=== PATIENT | female | born 1965 | race Caucasian/White ===

== ENCOUNTER 2018-11-02 09:28 | Emergency (ER) | payer BC ==
[2018-11-02] MEDS ORDERED: LORazepam 2 MG/ML SDV IVPUSH ONE (09:42)
--- NOTE | 2018-11-02 09:54 | EDM.PDOC ---
ED HPI GENERAL MEDICAL PROBLEM - General Chief Complaint: Cardiovascular Problem Stated Complaint: AMBULANCE Time Seen by Provider: 11/02/18 09:32 - History of Present Illness INITIAL COMMENTS - FREE TEXT/NARRATIVE: HISTORY AND PHYSICAL: History of present illness: Patient's 53-year-old white female with history of Mnire's disease did have a sac decompressive surgery which did improve her symptoms dramatically who presents today with a concern of profound dizziness different in nature along with headache chest pain associated nausea vomiting and one episode of profound diaphoresis yesterday. She presents via EMS and did receive Toradol and Zofran en route. Patient also has history of optic neuritis Review of systems: As per history of present illness and below otherwise all systems reviewed and negative. Past medical history: As per history of present illness and as reviewed below otherwise noncontributory. Surgical history: As per history of present illness and as reviewed below otherwise noncontributory. Social history: No reported history of drug or alcohol abuse. Family history: As per history of present illness and as reviewed below otherwise noncontributory. Physical exam: HEENT: Atraumatic, normocephalic, pupils reactive, negative for conjunctival pallor or scleral icterus, mucous membranes moist, throat clear, neck supple, nontender, trachea midline. Lungs: Clear to auscultation, breath sounds equal bilaterally, chest nontender. Heart: S1S2, regular, negative for clicks, rubs, or JVD. Abdomen: Soft, nondistended, nontender. Negative for masses or hepatosplenomegaly. Negative for costovertebral tenderness. Pelvis: Stable nontender. Genitourinary: Deferred. Rectal: Deferred. Extremities: Atraumatic, negative for cords or calf pain. Neurovascular unremarkable. Neuro: Awake, alert, oriented. Cranial nerves II through XII limited exam . Motor and sensory unremarkable throughout. Exam limited nonfocal. Diagnostics: CBC CMP troponin PT/INR chest x-ray EKG CT brain ESR CRP Therapeutics: IV O2 monitor Ativan 1 mg IV Impression: #1 dizziness history of Mnire's disease #2 history of optic neuritis #3 cephalgia #4 atypical chest pain Definitive disposition and diagnosis as appropriate pending reevaluation and review of above. 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 , 3 miscarriage Neurological History: Reports: Vertigo Other Neuro History: meneires, vestibular neuritis, optic neuritis Endocrine/Metabolic History: Reports: Diabetes, Type II Immunologic History: Reports: Other (See Below) Other Immunologic History: Hx of steroid infusions in high doses for neuritis hx - Past Surgical History HEENT Surgical History: Reports: Tonsillectomy Other HEENT Surgeries/Procedures: endolymphatic sac decompression of R ear GI Surgical History: Reports: Cholecystectomy Social & Family History - Family History Family Medical History: Noncontributory - Tobacco Use Smoking Status *Q: Never Smoker - Caffeine Use Caffeine Use: Reports: Coffee - Recreational Drug Use Recreational Drug Use: No ED ROS GENERAL - Review of Systems Review Of Systems: ROS reveals no pertinent complaints other than HPI. ED EXAM, GENERAL - Physical Exam Exam: See Below (See dictation) Course - Vital Signs Text/Narrative:: Patient's emergency murmur courses been unremarkable her workup is nondiagnostic she feels better I discussed with her remission for observation I discussed with her transfer to [facility] where her neurologist and other physicians are located patient declines both she requests discharge home and outpatient follow-up. She'll be discharged with diagnosis of #1 dizziness #2 atypical chest pain, #3 history of Mnire's disease, #4 history of optic neuritis will be given Zofran and Ativan as directed and follow-up VERONICA and return as needed as discussed. Last Recorded V/S: Last Vital Signs Temp 35.8 C 11/02/18 09:30 Pulse 91 11/02/18 11:04 Resp 20 11/02/18 11:04 BP 114/61 11/02/18 11:04 Pulse Ox 97 11/02/18 11:04 - Orders/Labs/Meds Orders: Active Orders 24 hr Category Date Time Status Cardiac Monitoring [RC] . DIRECTED Care 11/02/18 09:40 Active EKG Documentation Completion [RC] STAT Care 11/02/18 09:40 Active Labs: Laboratory Tests 11/02/18 11/02/18 11/02/18 Range/Units 09:50 09:50 09:50 WBC 5.12 (4.0-11.0) K/uL RBC 4.54 (4.30-5.90) M/uL Hgb 14.6 (12.0-16.0) g/dL Hct 40.8 (36.0-46.0) % MCV 89.9 (80.0-98.0) fL MCH 32.2 H (27.0-32.0) pg MCHC 35.8 (31.0-37.0) g/dL RDW Std Deviation 41.1 (28.0-62.0) fl RDW Coeff of [place] 13 (11.0-15.0) % Plt Count 238 (150-400) K/uL MPV 9.70 (7.40-12.00) fL Neut % (Auto) 74.7 (48.0-80.0) % Lymph % (Auto) 18.6 (16.0-40.0) % [place] % (Auto) 5.7 (0.0-15.0) % Eos % (Auto) 1.0 (0.0-7.0) % Baso % (Auto) 0.0 (0.0-1.5) % Neut # (Auto) 3.8 (1.4-5.7) K/uL Lymph # (Auto) 1.0 (0.6-2.4) K/uL [place] # (Auto) 0.3 (0.0-0.8) K/uL Eos # (Auto) 0.1 (0.0-0.7) K/uL Baso # (Auto) 0.0 (0.0-0.1) K/uL Nucleated RBC % 0.0 /100WBC Nucleated RBCs # 0 K/uL ESR 14 (0-29) mm/hr INR Sodium 137 (136-145) mmol/L Potassium 3.4 L (3.5-5.1) mmol/L Chloride 101 (98-107) mmol/L Carbon Dioxide 26.2 (21.0-32.0) mmol/L BUN 12 (7.0-18.0) mg/dL Creatinine 0.9 (0.6-1.0) mg/dL Est Cr Clr Drug Dosing 58.42 mL/min Estimated GFR (MDRD) > 60.0 ml/min Glucose 262 H (74-106) mg/dL Calcium 9.5 (8.5-10.1) mg/dL Total Bilirubin 0.5 (0.2-1.0) mg/dL AST 18 (15-37) IU/L ALT 22 (14-63) IU/L Alkaline Phosphatase 65 (46-116) U/L Troponin I < 0.050 (0.000-0.056) ng/mL C-Reactive Protein 0.20 (0.00-0.90) mg/dL Total Protein 7.2 (6.4-8.2) g/dL Albumin 3.6 (3.4-5.0) g/dL Globulin 3.6 (2.6-4.0) g/dL Albumin/Globulin Ratio 1.0 (0.9-1.6) 11/02/18 Range/Units 09:50 WBC (4.0-11.0) K/uL RBC (4.30-5.90) M/uL Hgb (12.0-16.0) g/dL Hct (36.0-46.0) % MCV (80.0-98.0) fL MCH (27.0-32.0) pg MCHC (31.0-37.0) g/dL RDW Std Deviation (28.0-62.0) fl RDW Coeff of [place] (11.0-15.0) % Plt Count (150-400) K/uL MPV (7.40-12.00) fL Neut % (Auto) (48.0-80.0) % Lymph % (Auto) (16.0-40.0) % [place] % (Auto) (0.0-15.0) % Eos % (Auto) (0.0-7.0) % Baso % (Auto) (0.0-1.5) % Neut # (Auto) (1.4-5.7) K/uL Lymph # (Auto) (0.6-2.4) K/uL [place] # (Auto) (0.0-0.8) K/uL Eos # (Auto) (0.0-0.7) K/uL Baso # (Auto) (0.0-0.1) K/uL Nucleated RBC % /100WBC Nucleated RBCs # K/uL ESR (0-29) mm/hr INR 0.98 Sodium (136-145) mmol/L Potassium (3.5-5.1) mmol/L Chloride (98-107) mmol/L Carbon Dioxide (21.0-32.0) mmol/L BUN (7.0-18.0) mg/dL Creatinine (0.6-1.0) mg/dL Est Cr Clr Drug Dosing mL/min Estimated GFR (MDRD) ml/min Glucose (74-106) mg/dL Calcium (8.5-10.1) mg/dL Total Bilirubin (0.2-1.0) mg/dL AST (15-37) IU/L ALT (14-63) IU/L Alkaline Phosphatase (46-116) U/L Troponin I (0.000-0.056) ng/mL C-Reactive Protein (0.00-0.90) mg/dL Total Protein (6.4-8.2) g/dL Albumin (3.4-5.0) g/dL Globulin (2.6-4.0) g/dL Albumin/Globulin Ratio (0.9-1.6) Meds: Medications Discontinued Medications Generic Name Dose Route Start Last Admin Trade Name Freq PRN Reason Stop Dose Admin Lorazepam 1 mg 11/02/18 09:42 11/02/18 09:47 Ativan IVPUSH 11/02/18 09:43 1 mg ONETIME ONE Administration Departure - Departure Time of Disposition: 11:29 Disposition: Home, Self-Care 01 Condition: Good Clinical Impression: Dizziness, Atypical chest pain, History of Meniere's disease, History of optic neuritis Forms: ED Department Discharge Additional Instructions: The following information is given to patients seen in the emergency department who are being discharged to home. This information is to outline your options for follow-up care. We provide all patients seen in our emergency department with a follow-up referral. The need for follow-up, as well as the timing and circumstances, are variable depending upon the specifics of your emergency department visit. If you don't have a primary care physician on staff, we will provide you with a referral. We always advise you to contact your personal physician following an emergency department visit to inform them of the circumstance of the visit and for follow-up with them and/or the need for any referrals to a consulting specialist. The emergency department will also refer you to a specialist when appropriate. This referral assures that you have the opportunity for followup care with a specialist. All of these measure are taken in an effort to provide you with optimal care, which includes your followup. Under all circumstances we always encourage you to contact your private physician who remains a resource for coordinating your care. When calling for followup care, please make the office aware that this follow-up is from your recent emergency room visit. If for any reason you are refused follow-up, please contact the [facility] emergency department at and asked to speak to the emergency department charge nurse. Zofran as prescribed Ativan as prescribed follow-up private medical doctor/ neurology as discussed and return as needed as discussed[] - My Orders Last 24 Hours: My Active Orders 11/02/18 09:40 Cardiac Monitoring [RC] . DIRECTED EKG Documentation Completion [RC] STAT - Assessment/Plan Last 24 Hours: My Active Orders 11/02/18 09:40 Cardiac Monitoring [RC] . DIRECTED EKG Documentation Completion [RC] STAT
[2018-11-02 10:37] LABS: CHLORIDE,CL 101 mmol/L (98-107); SODIUM,NA 137 mmol/L (136-145)
--- NOTE | 2018-11-02 10:39 | CT ---
EXAMINATION: Non contrast CT head. Coronal and sagittal reformats. HISTORY: Dizziness FINDINGS: No evidence of intra or extra axial hemorrhage, mass, midline shift, hydrocephalus or edema. No hypoattenuation changes in the major vascular territories to suggest acute infarct. No abnormal intracranial calcifications are detected. No evidence of substantial vascular calcifications. Moderate left and mild right mucosal thickening within the mastoid air cells. Old left lamina papyracea fracture. Mild mucosal thickening within the remaining paranasal sinuses. Postsurgical changes noted at the right mastoid air cells. Pituitary fossa appears unremarkable. Orbits and globes are otherwise symmetric. Calvarium is intact. No evidence of skull fracture. IMPRESSION: 1. No acute intracranial findings. 2. Mild to moderate paranasal sinus disease.
--- NOTE | 2018-11-02 10:39 | CR ---
EXAMINATION: Portable chest radiograph. HISTORY: Dizziness. FINDINGS: The trachea is midline. The cardiomediastinal silhouette is within normal limits. No pulmonary infiltrates, effusions or pneumothorax. Osseous structures appear unremarkable. IMPRESSION: No acute cardiopulmonary process.
== END 2018-11-02 11:45 | disposition home or self-care (01) ==
LOC: MW.ED 09:28
DX: R42 Dizziness and giddiness (principal); R07.89 Other chest pain; R51 Headache; E11.9 Type 2 diabetes mellitus without complications; Z86.69 Personal history of other diseases of the nervous system and sense organs; Z88.8 Allergy status to other drugs, medicaments and biological substances
CPT/HCPCS: 36415; 70450; 71045; 80053; 84484; 85025; 85610; 85652; 86140; 93005; 96374; 99285; J2060; 99284

== ENCOUNTER 2019-05-10 04:29 | Emergency (ER) | payer BC ==
[2019-05-10] MEDS ORDERED: Ondansetron 4 MG/2 ML SDV IVPUSH ONE (04:37)
[2019-05-10] MEDS ORDERED: Ketorolac 30 MG/ML SDV IVPUSH ONE (04:37)
[2019-05-10] MEDS ORDERED: Sodium Chloride 0.9% 1,000 ML IV SCH (04:45)
--- NOTE | 2019-05-10 05:00 | EDM.PDOC ---
ED HPI GENERAL MEDICAL PROBLEM - General Chief Complaint: Headache Stated Complaint: MIGRAINE Time Seen by Provider: 05/10/19 04:55 - History of Present Illness INITIAL COMMENTS - FREE TEXT/NARRATIVE: HISTORY AND PHYSICAL: History of present illness: Patient's 54-year-old white female history of Mnire's disease presents a concern of headache she's had similar episodes before she has associated nausea she denies fever chills denies trauma denies chest pain palpitations or other concern Review of systems: As per history of present illness and below otherwise all systems reviewed and negative. Past medical history: As per history of present illness and as reviewed below otherwise noncontributory. Surgical history: As per history of present illness and as reviewed below otherwise noncontributory. Social history: No reported history of drug or alcohol abuse. Family history: As per history of present illness and as reviewed below otherwise noncontributory. Physical exam: HEENT: Atraumatic, normocephalic, pupils reactive, negative for conjunctival pallor or scleral icterus, mucous membranes moist, throat clear, neck supple, nontender, trachea midline. Lungs: Clear to auscultation, breath sounds equal bilaterally, chest nontender. Heart: S1S2, regular, negative for clicks, rubs, or JVD. Abdomen: Soft, nondistended, nontender. Negative for masses or hepatosplenomegaly. Negative for costovertebral tenderness. Pelvis: Stable nontender. Genitourinary: Deferred. Rectal: Deferred. Extremities: Atraumatic, negative for cords or calf pain. Neurovascular unremarkable. Neuro: Awake, alert, oriented. Cranial nerves II through XII unremarkable. Cerebellum unremarkable. Motor and sensory unremarkable throughout. Exam nonfocal. Diagnostics: CT brain Therapeutics: Toradol 30 mg IV Zofran 4 mg IV 0.9 normal saline 1 L Impression: #1 cephalgia #2 history of Mnire's disease Definitive disposition and diagnosis as appropriate pending reevaluation and review of above. headache Pain Score (Numeric/FACES): 8 - Related Data Allergies Allergy/AdvReac Type Severity Reaction Status Date / Time pentosan polysulfate sodium Allergy Anaphylactic Verified 05/10/19 04:40 [From Elmiron] Shock Home Meds: Home Meds Insulin Detemir [Levemir Flextouch] 36 unit SQ DAILY 05/10/19 [History] Insuln Asp Prot/Insulin Aspart [NovoLOG Mix 70-30] mg SQ TID 05/10/19 [History] Liraglutide [Victoza] 1.2 mg SQ DAILY 05/10/19 [History] Sertraline [Zoloft] 150 mg PO DAILY 05/10/19 [History] Triamterene/Hydrochlorothiazid [Triamterene-HCTZ 37.5-25 MG] 1 tab PO DAILY [History] Past Medical History HEENT History: Reports: Other (See Below) Other HEENT History: optic neuritis 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 , 3 miscarriage Neurological History: Reports: Vertigo Other Neuro History: meneires, vestibular neuritis, optic neuritis Endocrine/Metabolic History: Reports: Diabetes, Type II Immunologic History: Reports: Other (See Below) Other Immunologic History: Hx of steroid infusions in high doses for neuritis hx - Past Surgical History HEENT Surgical History: Reports: Tonsillectomy Other HEENT Surgeries/Procedures: endolymphatic sac decompression of R ear GI Surgical History: Reports: Cholecystectomy Social & Family History - Family History Family Medical History: Noncontributory - Tobacco Use Smoking Status *Q: Never Smoker - Caffeine Use Caffeine Use: Reports: Coffee - Recreational Drug Use Recreational Drug Use: No ED ROS GENERAL - Review of Systems Review Of Systems: ROS reveals no pertinent complaints other than HPI. ED EXAM, GENERAL - Physical Exam Exam: See Below (See dictation) Course - Vital Signs Last Recorded V/S: Last Vital Signs Temp 36.2 C 05/10/19 04:31 Pulse 76 05/10/19 04:31 Resp 18 05/10/19 04:31 BP 139/75 05/10/19 04:31 Pulse Ox 96 05/10/19 04:31 - Orders/Labs/Meds Orders: Active Orders 24 hr Category Date Time Status Sodium Chloride 0.9% [Normal Saline] 1,000 ml Med 05/10/19 04:45 Active IV ASDIRECTED Medication Orders Sodium Chloride (Normal Saline) 1,000 mls @ 999 mls/hr IV ASDIRECTED SHRUTHI Last Admin: 05/10/19 04:44 Dose: 999 mls/hr Labs: Laboratory Tests 05/10/19 05/10/19 05/10/19 Range/Units 05:20 05:35 05:35 WBC 4.95 (4.0-11.0) K/uL RBC 3.90 L (4.30-5.90) M/uL Hgb 12.6 (12.0-16.0) g/dL Hct 36.4 (36.0-46.0) % MCV 93.3 (80.0-98.0) fL MCH 32.3 H (27.0-32.0) pg MCHC 34.6 (31.0-37.0) g/dL RDW Std Deviation 42.0 (28.0-62.0) fl RDW Coeff of [place] 13 (11.0-15.0) % Plt Count 159 (150-400) K/uL MPV 9.60 (7.40-12.00) fL Neut % (Auto) 67.6 (48.0-80.0) % Lymph % (Auto) 25.9 (16.0-40.0) % [place] % (Auto) 5.1 (0.0-15.0) % Eos % (Auto) 1.2 (0.0-7.0) % Baso % (Auto) 0.2 (0.0-1.5) % Neut # (Auto) 3.4 (1.4-5.7) K/uL Lymph # (Auto) 1.3 (0.6-2.4) K/uL [place] # (Auto) 0.3 (0.0-0.8) K/uL Eos # (Auto) 0.1 (0.0-0.7) K/uL Baso # (Auto) 0.0 (0.0-0.1) K/uL Nucleated RBC % 0.0 /100WBC Nucleated RBCs # 0 K/uL Sodium 142 (136-145) mmol/L Potassium 3.5 (3.5-5.1) mmol/L Chloride 110 H (98-107) mmol/L Carbon Dioxide 25.5 (21.0-32.0) mmol/L BUN 13 (7.0-18.0) mg/dL Creatinine 0.7 (0.6-1.0) mg/dL Est Cr Clr Drug Dosing 74.23 mL/min Estimated GFR (MDRD) > 60.0 ml/min Glucose 166 H (74-106) mg/dL Calcium 8.0 L (8.5-10.1) mg/dL Total Bilirubin 0.2 (0.2-1.0) mg/dL AST 11 L (15-37) IU/L ALT 20 (14-63) IU/L Alkaline Phosphatase 42 L (46-116) U/L Total Protein 5.1 L (6.4-8.2) g/dL Albumin 2.6 L (3.4-5.0) g/dL Globulin 2.5 L (2.6-4.0) g/dL Albumin/Globulin Ratio 1.0 (0.9-1.6) Urine Color YELLOW Urine Appearance CLEAR Urine pH 6.0 (5.0-8.0) Ur Specific [place] 1.020 (1.001-1.035) Urine Protein NEGATIVE (NEGATIVE) mg/dL Urine Glucose (UA) NEGATIVE (NEGATIVE) mg/dL Urine Ketones NEGATIVE (NEGATIVE) mg/dL Urine Occult Blood NEGATIVE (NEGATIVE) Urine Nitrite NEGATIVE (NEGATIVE) Urine Bilirubin NEGATIVE (NEGATIVE) Urine Urobilinogen 0.2 (<2.0) EU/dL Ur Leukocyte Esterase NEGATIVE (NEGATIVE) Meds: Medications Generic Name Dose Route Start Last Admin Trade Name Freq PRN Reason Stop Dose Admin Sodium Chloride 1,000 mls @ 999 mls/hr 05/10/19 04:45 05/10/19 04:44 Normal Saline IV 999 mls/hr ASDIRECTED SHRUTHI Administration Discontinued Medications Generic Name Dose Route Start Last Admin Trade Name Freq PRN Reason Stop Dose Admin Ketorolac Tromethamine 30 mg 05/10/19 04:37 05/10/19 04:44 Toradol IVPUSH 05/10/19 04:38 30 mg ONETIME ONE Administration Lorazepam 1 mg 05/10/19 05:23 05/10/19 05:28 Ativan IVPUSH 05/10/19 05:24 1 mg ONETIME ONE Administration Ondansetron HCl 4 mg 05/10/19 04:37 05/10/19 04:44 Zofran IVPUSH 05/10/19 04:38 4 mg ONETIME ONE Administration Departure - Departure Time of Disposition: 06:15 Disposition: Home, Self-Care 01 Condition: Good Clinical Impression: Cephalgia, Sinusitis - Discharge Information Referrals: PCP,None [Primary Care Provider] - Forms: ED Department Discharge Additional Instructions: The following information is given to patients seen in the emergency department who are being discharged to home. This information is to outline your options for follow-up care. We provide all patients seen in our emergency department with a follow-up referral. The need for follow-up, as well as the timing and circumstances, are variable depending upon the specifics of your emergency department visit. If you don't have a primary care physician on staff, we will provide you with a referral. We always advise you to contact your personal physician following an emergency department visit to inform them of the circumstance of the visit and for follow-up with them and/or the need for any referrals to a consulting specialist. The emergency department will also refer you to a specialist when appropriate. This referral assures that you have the opportunity for followup care with a specialist. All of these measure are taken in an effort to provide you with optimal care, which includes your followup. Under all circumstances we always encourage you to contact your private physician who remains a resource for coordinating your care. When calling for followup care, please make the office aware that this follow-up is from your recent emergency room visit. If for any reason you are refused follow-up, please contact the [facility] emergency department at and asked to speak to the emergency department charge nurse. Augmentin as prescribed follow-up primary medical doctor as needed as discussed follow-up neurology as discussed return as needed as discussed - My Orders Last 24 Hours: My Active Orders 05/10/19 04:45 Sodium Chloride 0.9% [Normal Saline] 1,000 ml IV ASDIRECTED - Assessment/Plan Last 24 Hours: My Active Orders 05/10/19 04:45 Sodium Chloride 0.9% [Normal Saline] 1,000 ml IV ASDIRECTED
[2019-05-10] MEDS ORDERED: LORazepam 2 MG/ML SDV IVPUSH ONE (05:23)
--- NOTE | 2019-05-10 05:25 | CT ---
INDICATION: Headache TECHNIQUE: CT head without contrast. COMPARISON: None. FINDINGS: CSF spaces: Within normal limits for age. Brain parenchyma: The blum-white differentiation is normal. No sign of mass, hemorrhage, or midline shift. Skull base and calvarium: Status post right mastoidectomy. Mucosal thickening right maxillary sinus. The visualized orbits are grossly unremarkable. No skull fractures. IMPRESSION: 1. No intracranial bleed or mass effect. 2. Minimal right maxillary sinus disease. Please note that all CT scans at this facility use dose modulation, iterative reconstruction, and/or weight-based dosing when appropriate to reduce radiation dose to as low as reasonably achievable. Dictated by Nolberto Cano MD @ May 10 2019 5:21AM Signed by Dr. Nolberto Cano @ May 10 2019 5:24AM
[2019-05-10 05:59] LABS: CHLORIDE,CL 110 mmol/L (98-107); SODIUM,NA 142 mmol/L (136-145)
== END 2019-05-10 06:30 | disposition home or self-care (01) ==
LOC: MW.ED 04:29
DX: J32.9 Chronic sinusitis, unspecified (principal); R51 Headache; R11.0 Nausea; Z98.890 Other specified postprocedural states; Z90.49 Acquired absence of other specified parts of digestive tract; E11.9 Type 2 diabetes mellitus without complications; Z79.4 Long term (current) use of insulin
CPT/HCPCS: 36415; 70450; 80053; 81003; 85025; 96361; 96374; 96375; 99284; J1885; J2060; J2405; J7040